=== PATIENT | female | born 1990 | race Two or more races ===

== ENCOUNTER → 2022-07-20 | Outpatient (CLI) | payer OTHER, MEDICAID ==
[2022-07-20 15:53] LABS: BASO % 0.1 % (0.0-1.0); EOS # 0.1 10^3/uL (0.0-0.5); EOS % 0.9 % (0.0-3.0); HEMATOCRIT 36.7 % (36.0-47.0); HEMOGLOBIN 11.4 g/dl (12.0-15.5); LYMPH # 2.8 10^3/uL (1.5-5.0); LYMPH % 25.8 % (24.0-44.0); MEAN CORPUSCULAR HEMOGLOBIN 22.2 pg (27.0-33.0); MEAN CORPUSCULAR HGB CONC 31.1 g/dl (32.0-36.5); MEAN CORPUSCULAR VOLUME 71.4 fl (80.0-96.0); MONO # 0.8 10^3/uL (0.0-0.8); MONO % 7.4 % (2.0-8.0); NEUTROPHILS # 7.2 10^3/uL (1.5-8.5); NEUTROPHILS % 65.4 % (36.0-66.0); PLATELET COUNT, AUTOMATED 359 10^3/uL (150-450); RED BLOOD COUNT 5.14 10^6/uL (4.00-5.40); WHITE BLOOD COUNT 10.9 10^3/uL (4.0-10.0)
[2022-07-20 17:11] LABS: TOTAL PROTEIN,RANDOM URINE 13.3 MG/DL (0.0-12.0)
[2022-07-20 17:37] LABS: GC DNA AMPLIFICATION NEGATIVE (NEGATIVE)
[2022-07-20 19:25] LABS: ALT/SGPT 15 U/L (12-78); BILIRUBIN,TOTAL 0.1 MG/DL (0.2-1.0); CREATININE FOR GFR 0.61 MG/DL (0.55-1.30); GLOMERULAR FILTRATION RATE > 60.0 (>60); HEPATITIS C VIRUS ABY INDEX < 0.0 INDEX (<0.8); HIV 1&2 SCREEN CENTAUR NEGATIVE (NEGATIVE); LDH LACTATE DEHYDROGENASE 204 U/L (84-246)
== END ==
LOC: M PLALAB 14:10
PROVIDERS: ATTEND Obstetrics & Gynecology
DX: O10.911 Unspecified pre-existing hypertension complicating pregnancy, first trimester (principal)

== ENCOUNTER → 2022-10-07 | Outpatient (CLI) | payer OTHER | LOC: M WHC 08:56 | PROVIDERS: ATTEND Specialist | DX: Z34.82 Encounter for supervision of other normal pregnancy, second trimester (principal) ==

== ENCOUNTER → 2022-11-27 | Outpatient (CLI) | payer OTHER ==
[2022-11-27 17:35] LABS: HEMATOCRIT 34.3 % (36.0-47.0); HEMOGLOBIN 10.4 g/dl (12.0-15.5); MEAN CORPUSCULAR HEMOGLOBIN 21.5 pg (27.0-33.0); MEAN CORPUSCULAR HGB CONC 30.3 g/dl (32.0-36.5); MEAN CORPUSCULAR VOLUME 70.9 fl (80.0-96.0); PLATELET COUNT, AUTOMATED 385 10^3/uL (150-450); RED BLOOD COUNT 4.84 10^6/uL (4.00-5.40); WHITE BLOOD COUNT 13.2 10^3/uL (4.0-10.0)
== END ==
LOC: M PLALAB 14:20
PROVIDERS: ATTEND Obstetrics & Gynecology
DX: O10.912 Unspecified pre-existing hypertension complicating pregnancy, second trimester (principal); Z3A.24 24 weeks gestation of pregnancy

== ENCOUNTER → 2023-01-13 | Outpatient (REF) | payer OTHER | LOC: M SFHCWAGY 16:41 | PROVIDERS: ATTEND Obstetrics & Gynecology | DX: Z34.93 Encounter for supervision of normal pregnancy, unspecified, third trimester (principal) ==

== ENCOUNTER → 2023-01-15 | Outpatient (CLI) | payer OTHER | LOC: M WHC 13:52 | PROVIDERS: ATTEND Obstetrics & Gynecology | DX: O10.013 Pre-existing essential hypertension complicating pregnancy, third trimester (principal) ==

== ENCOUNTER 2023-01-24 19:05 | Inpatient (IN) | payer OTHER ==
[~2023-01-24] VITALS: Ht 162.6 cm; Wt 110.4 kg
[2023-01-24] MEDS ORDERED: PENICILLIN G POTASSIUM 5 MU IV 5 MU in D5W MINI-BAG PLUS 100 ML IV STA (19:34)
[2023-01-24] MEDS ORDERED: LIDOCAINE 1% MDV 20ML VIAL INFIL PRN (19:35)
[2023-01-24] MEDS ORDERED: OXYTOCIN DRIP 30 UNITS in IV 1 EA IV PRN (19:35)
[2023-01-24] MEDS ORDERED: UNRESOLVED CLARIFICATION ENTRY XX STA (19:44)
[2023-01-24] MEDS ORDERED: ZOLO25TA PO (20:00)
[2023-01-24] MEDS ORDERED: FERR325T3 PO (20:01)
[2023-01-24] MEDS ORDERED: ASPI81CH33 PO (20:01)
[2023-01-24 20:05] LABS: HEMATOCRIT 36.6 % (36.0-47.0); HEMOGLOBIN 11.8 g/dl (12.0-15.5); MEAN CORPUSCULAR HEMOGLOBIN 22.1 pg (27.0-33.0); MEAN CORPUSCULAR HGB CONC 32.2 g/dl (32.0-36.5); MEAN CORPUSCULAR VOLUME 68.7 fl (80.0-96.0); PLATELET COUNT, AUTOMATED 304 10^3/uL (150-450); RED BLOOD COUNT 5.33 10^6/uL (4.00-5.40)
[2023-01-24] MEDS ORDERED: LR 1,000 ML IV SCH (20:15)
[2023-01-24] MEDS ORDERED: LR 1,000 ML IV ONE (20:15)
[2023-01-24] MEDS: miSOPROStol 50MCG 1/2 TABLET PO SCH (20:19)
[2023-01-24 20:20] VITALS: BP 137/73
[2023-01-24 20:27] LABS: LDH LACTATE DEHYDROGENASE 184 U/L (120-246)
[2023-01-24 20:29] LABS: ALT/SGPT 9 U/L (7.0-40); AST/SGOT < 8 U/L (<34); BILIRUBIN,TOTAL 0.2 MG/DL (0.3-1.2); CREATININE FOR GFR 0.55 MG/DL (0.55-1.30); GLOMERULAR FILTRATION RATE > 60.0 (>60)
[2023-01-24 20:51] VITALS: BP 127/73
[2023-01-24 21:21] VITALS: BP 120/62
[2023-01-24 23:45] VITALS: BP 134/82
[2023-01-25] VITALS (14 sets, daily range): BP systolic 130–185; BP diastolic 62–101
[2023-01-25] MEDS ORDERED: PEN G POT 3,000,000 UNIT/50 ML 3,000,000 UNIT in IV 1 EA IV SCH ×2
[2023-01-25] MEDS: miSOPROStol 50MCG 1/2 TABLET PO SCH (00:16)
[2023-01-25] MEDS ORDERED: ONDANSETRON 4MG 2ML VIAL IV PRN (01:40)
[2023-01-25] MEDS ORDERED: LR 500 ML IV PRN (01:40)
[2023-01-25] MEDS ORDERED: diphenhydrAMINE 50MG/ML VIAL IV PRN (01:40)
[2023-01-25] MEDS ORDERED: ePHEDrine SULFATE 25 MG/5 ML(5MG/ML) SYRINGE IVP PRN (01:40)
[2023-01-25] MEDS ORDERED: EPIDURAL/PCA KEYS XX PRN (01:40)
[2023-01-25] MEDS ORDERED: NALOXONE INJ 0.4MG/1ML VIAL IV PRN (01:40)
[2023-01-25] MEDS ORDERED: FENTANYL/ROPIVACAINE/NACL BAG 100 ML EPIDURAL SCH (01:40)
[2023-01-25] MEDS ORDERED: OXYTOCIN 30UNITS IN 0.9% NaCl 500ML IV BAG As Ordered ONE (02:37)
[2023-01-25] MEDS ORDERED: METHYLERGONOVINE MALEATE 0.2 MG TAB PO PRN (03:35)
[2023-01-25] MEDS ORDERED: IBUPROFEN 800 MG TAB PO PRN (03:35)
[2023-01-25] MEDS ORDERED: IBUPROFEN 600MG TAB PO PRN (03:35)
[2023-01-25] MEDS ORDERED: OXYTOCIN DRIP 30 UNITS in IV 1 EA IV SCH (03:35)
[2023-01-25] MEDS ORDERED: MOM 30ML SUSPENSION UDC PO PRN (03:35)
[2023-01-25] MEDS ORDERED: RHOGAM 300MCG (1500IU) INJ IM SCH (03:35)
[2023-01-25] MEDS ORDERED: DOCUSATE SODIUM 100MG CAPSULE PO PRN (03:35)
[2023-01-25] MEDS ORDERED: ACETAMINOPHEN TAB 650MG DOSE (2X325MG) PO PRN (03:35)
[2023-01-25] MEDS ORDERED: DIBUCAINE 1% OINTMENT 30GM TOP PRN (03:35)
[2023-01-25] MEDS: LABETALOL 200 MG TAB PO SCH ×2 (03:38→21:55)
[2023-01-25] MEDS: ACETAMINOPHEN 500 MG TAB PO PRN ×2 (03:52→06:36)
[2023-01-25] MEDS ORDERED: oxyCODONE 10 MG CR TAB PO PRN (05:05)
[2023-01-25] MEDS ORDERED: oxyCODONE 5MG TAB PO PRN (05:15)
[2023-01-25] MEDS: PRENATAL VITAMINS CHEWABLE TABLET PO SCH (11:03)
[2023-01-26 06:00] VITALS: BP 128/65
[2023-01-26] MEDS: LABETALOL 200 MG TAB PO SCH (08:14)
[2023-01-26] MEDS: PRENATAL VITAMINS CHEWABLE TABLET PO SCH (08:14)
[2023-01-26] MEDS ORDERED: IBUP80TA PO (09:19)
[2023-01-26] MEDS ORDERED: ACET-683 PO (09:19)
[2023-01-27] MEDS ORDERED: MEASLES,MUMPS,RUBELLA VACCINE INJ (MMR-II) SC.IMMUN ONE (09:00)
== END 2023-01-26 15:25 | disposition home or self-care (01) | DRG 807 ==
LOC: M LDI 19:05 → M OBS 01-25 04:40
PROVIDERS: ADMIT Obstetrics & Gynecology; ATTEND Obstetrics & Gynecology
PROC: 3E033VJ Introduction of Other Hormone into Peripheral Vein, Percutaneous Approach (ICD-10-PCS; 2023-01-24)
PROC: 10E0XZZ Delivery of Products of Conception, External Approach (ICD-10-PCS; principal; 2023-01-25)
PROC: 0KQM0ZZ Repair Perineum Muscle, Open Approach (ICD-10-PCS; 2023-01-25)
DX: O10.02 Pre-existing essential hypertension complicating childbirth (principal); Z37.0 Single live birth; Z3A.38 38 weeks gestation of pregnancy; Z79.82 Long term (current) use of aspirin; Z79.899 Other long term (current) drug therapy; O70.1 Second degree perineal laceration during delivery; O99.344 Other mental disorders complicating childbirth; F43.10 Post-traumatic stress disorder, unspecified; F60.89 Other specific personality disorders; Z62.811 Personal history of psychological abuse in childhood; Z62.810 Personal history of physical and sexual abuse in childhood

== ENCOUNTER → 2023-02-16 | Outpatient (REF) | payer OTHER ==
[~2023-02-16] MED LIST: ACET-683 PO; ASPI81CH33 PO; FERR325T3 PO; IBUP80TA PO; ZOLO25TA PO
== END ==
LOC: M LAB REF 16:17
PROVIDERS: ATTEND Physician Assistant
DX: E04.9 Nontoxic goiter, unspecified (principal)

== ENCOUNTER 2023-06-26 19:03 | Emergency (ER) | payer OTHER ==
[~2023-06-26] VITALS: Ht 162.6 cm; Wt 85.5 kg
[2023-06-26 20:15] VITALS: TEMP 97.8
[2023-06-26 22:01] LABS: HEMATOCRIT 38.9 % (36.0-47.0); HEMOGLOBIN 11.7 g/dl (12.0-15.5); MEAN CORPUSCULAR HGB CONC 30.1 g/dl (32.0-36.5); MEAN CORPUSCULAR VOLUME 66.6 fl (80.0-96.0); PLATELET COUNT, AUTOMATED 406 10^3/uL (150-450); RED BLOOD COUNT 5.84 10^6/uL (4.00-5.40); WHITE BLOOD COUNT 10.9 10^3/uL (4.0-10.0)
[2023-06-26] MEDS ORDERED: PALI1TAB3 PO (22:12)
[2023-06-26] MEDS ORDERED: ZOLO100T PO (22:12)
[2023-06-26] MEDS ORDERED: HYDR-3363 PO (22:12)
[2023-06-26] MEDS ORDERED: TRAZ-257 PO (22:12)
[2023-06-26] MEDS ORDERED: ONDA4TAB6 PO (22:12)
[2023-06-26] MEDS ORDERED: HOME MED LIST COMPLETE! XX SCH (22:15)
[2023-06-26 22:28] LABS: AMPHETAMINES LEVEL URINE NEGATIVE (NEGATIVE); BARBITURATES URINE NEGATIVE (NEGATIVE); CANNABINOIDS URINE NEGATIVE (NEGATIVE); COCAINE METABOLITE URINE NEGATIVE (NEGATIVE); METHADONE URINE NEGATIVE (NEGATIVE); OPIATES URINE NEGATIVE (NEGATIVE); PHENCYCLIDINE URINE NEGATIVE (NEGATIVE)
[2023-06-26 22:29] LABS: BENZODIAZEPINES URINE NEGATIVE (NEGATIVE)
[2023-06-26 22:30] LABS: ETHYL ALCOHOL (ETHANOL) < 0.003 % (0.000-0.010); HCG, SERUM QUALITATIVE NEGATIVE (NEGATIVE)
[2023-06-26 22:31] LABS: ACETAMINOPHEN LEVEL < 2.0 UG/ML (10.0-20.0); ALBUMIN 3.9 G/DL (3.2-5.2); ALKALINE PHOSPHATASE 61 U/L (46-116); ALT/SGPT 20 U/L (7.0-40); AST/SGOT 16 U/L (<34); BILIRUBIN,DIRECT 0.1 MG/DL (<0.4); BILIRUBIN,TOTAL 0.3 MG/DL (0.3-1.2); BLOOD UREA NITROGEN 11 MG/DL (9-23); CALCIUM LEVEL 9.6 MG/DL (8.5-10.1); CARBON DIOXIDE LEVEL 26 MMOL/L (20-31); CHLORIDE LEVEL 107 MMOL/L (98-107); CREATININE FOR GFR 0.72 MG/DL (0.55-1.30); GLOMERULAR FILTRATION RATE > 60.0 (>60); GLUCOSE, FASTING 84 MG/DL (60-100); POTASSIUM SERUM 4.2 MMOL/L (3.5-5.1); SALICYLATE LEVEL < 3.0 MG/DL (<30); SODIUM LEVEL 141 MMOL/L (136-145); TOTAL PROTEIN 7.4 G/DL (5.7-8.2)
[2023-06-26 22:34] LABS: THYROID STIMULATING HORMONE 1.287 uIU/ML (0.55-4.78)
[2023-06-26 23:53] VITALS: BP 171/98; O2SAT 98
== END 2023-06-26 23:55 | disposition home or self-care (01) ==
LOC: M ED 19:03
DX: R45.851 Suicidal ideations (principal); F43.9 Reaction to severe stress, unspecified; F41.9 Anxiety disorder, unspecified; F32.A Depression, unspecified; F31.9 Bipolar disorder, unspecified; Z79.899 Other long term (current) drug therapy

== ENCOUNTER 2023-10-06 22:11 | Emergency (ER) | payer OTHER ==
[~2023-10-06 22:11] MED LIST changes: +HYDR-3363 PO; +ONDA4TAB6 PO; +PALI1TAB3 PO; +TRAZ-257 PO; +ZOLO100T PO
[2023-10-06] MEDS ORDERED: DERMABOND TOPICAL SKIN ADHESIVE TOP ONE (23:00)
[2023-10-06] MEDS ORDERED: BOOSTRIX VACCINE (TETANUS/DIPHTH/ACEL. PERTUSSIS) 0.5ML SYR IM.IMMUN ONE (23:20)
[2023-10-07] MEDS ORDERED: ARIP10TA32 PO (00:14)
[2023-10-07] MEDS ORDERED: HOME MED LIST COMPLETE! XX SCH (00:15)
[2023-10-07] MEDS ORDERED: LORazepam 1 MG TAB PO STA (00:17)
[2023-10-07 00:41] LABS: AMPHETAMINES LEVEL URINE NEGATIVE (NEGATIVE); BARBITURATES URINE NEGATIVE (NEGATIVE); BENZODIAZEPINES URINE NEGATIVE (NEGATIVE); CANNABINOIDS URINE NEGATIVE (NEGATIVE); COCAINE METABOLITE URINE NEGATIVE (NEGATIVE); METHADONE URINE NEGATIVE (NEGATIVE); OPIATES URINE NEGATIVE (NEGATIVE); PHENCYCLIDINE URINE NEGATIVE (NEGATIVE)
[2023-10-07 00:42] LABS: HEMATOCRIT 38.8 % (36.0-47.0); HEMOGLOBIN 12.3 g/dl (12.0-15.5); MEAN CORPUSCULAR HEMOGLOBIN 21.8 pg (27.0-33.0); MEAN CORPUSCULAR HGB CONC 31.7 g/dl (32.0-36.5); MEAN CORPUSCULAR VOLUME 68.8 fl (80.0-96.0); PLATELET COUNT, AUTOMATED 395 10^3/uL (150-450); RED BLOOD COUNT 5.64 10^6/uL (4.00-5.40); WHITE BLOOD COUNT 13.2 10^3/uL (4.0-10.0)
[2023-10-07 00:43] LABS: ETHYL ALCOHOL (ETHANOL) < 0.003 % (0.000-0.010)
[2023-10-07 00:45] LABS: ALBUMIN 4.1 G/DL (3.2-5.2); ALKALINE PHOSPHATASE 61 U/L (46-116); ALT/SGPT 20 U/L (7.0-40); AST/SGOT 13 U/L (<34); BILIRUBIN,DIRECT < 0.1 MG/DL (<0.4); BILIRUBIN,TOTAL 0.3 MG/DL (0.3-1.2); BLOOD UREA NITROGEN 23 MG/DL (9-23); CALCIUM LEVEL 9.3 MG/DL (8.5-10.1); CARBON DIOXIDE LEVEL 23 MMOL/L (20-31); CHLORIDE LEVEL 104 MMOL/L (98-107); CREATININE FOR GFR 0.88 MG/DL (0.55-1.30); GLOMERULAR FILTRATION RATE > 60.0 (>60); GLUCOSE, FASTING 95 MG/DL (60-100); POTASSIUM SERUM 4.1 MMOL/L (3.5-5.1); SALICYLATE LEVEL < 3.0 MG/DL (<30); SODIUM LEVEL 137 MMOL/L (136-145); TOTAL PROTEIN 7.9 G/DL (5.7-8.2)
[2023-10-07 00:46] LABS: HCG, SERUM QUALITATIVE NEGATIVE (NEGATIVE)
[2023-10-07 00:47] LABS: THYROID STIMULATING HORMONE 0.631 uIU/ML (0.55-4.78)
[2023-10-07] MEDS ORDERED: traZODone 100 MG TAB PO PRN (08:05)
[2023-10-07] MEDS ORDERED: ONDANSETRON 4MG ORAL DISINTEGRATING TAB PO PRN (08:05)
[2023-10-07 08:49] VITALS: TEMP 97.8
[2023-10-07] MEDS ORDERED: SERTRALINE 100 MG TAB PO SCH (09:00)
[2023-10-07] MEDS ORDERED: ARIPiprazole 10 MG TAB PO SCH (09:00)
[2023-10-07] MEDS ORDERED: METAL LOCK LOOP XX ONE (11:49)
[2023-10-07 13:05] LABS: APPEARANCE, URINE HAZY (CLEAR); BACTERIA, URINE AUTO NEGATIVE (NEGATIVE); BILIRUBIN, URINE AUTO NEGATIVE (NEGATIVE); BLOOD, URINE BLOOD 3+ (NEGATIVE); COLOR, URINE YELLOW (YELLOW); GLUCOSE, URINE (UA) AUTO NEGATIVE (NEGATIVE); KETONE, URINE AUTO NEGATIVE (NEGATIVE); LEUKOCYTE ESTERASE, URINE AUTO TRACE (NEGATIVE); NITRITE, URINE AUTO NEGATIVE (NEGATIVE); PROTEIN, URINE AUTO 2+ mg/dL (NEGATIVE); RBC, URINE AUTO TNTC /HPF (0-3); SPECIFIC GRAVITY URINE AUTO 1.029 (1.002-1.035); SQUAMOUS EPITHELIAL CELL UR AU 5 /HPF (0-6); UROBILINOGEN, URINE AUTO 0.2 mg/dL (0.0-2.0); WBC, URINE AUTO 18 /HPF (0-3)
[2023-10-07 16:38] VITALS: BP 149/99; O2SAT 98
== END 2023-10-07 16:38 ==
LOC: M ED 22:11
DX: R45.851 Suicidal ideations (principal); S51.812A Laceration without foreign body of left forearm, initial encounter; F32.A Depression, unspecified; F31.9 Bipolar disorder, unspecified; F20.9 Schizophrenia, unspecified; Z79.899 Other long term (current) drug therapy

== ENCOUNTER 2024-07-05 10:44 | Emergency (ER) | payer OTHER ==
[~2024-07-05] VITALS: Ht 162.6 cm; Wt 92.9 kg
[~2024-07-05 10:44] MED LIST changes: +ARIP10TA32 PO; +ONDA-282 PO; -ONDA4TAB6 PO
[2024-07-05 10:46] VITALS: BP 141/87; TEMP 97.4; O2SAT 100
[2024-07-05] MEDS ORDERED: LAMO25TA4 (10:52)
[2024-07-05] MEDS ORDERED: LAMO25TA4 PO (12:00)
[2024-07-05] MEDS ORDERED: ARIP1TAB PO (12:00)
== END 2024-07-05 12:05 | disposition home or self-care (01) ==
LOC: M ED 10:44
DX: Z76.0 Encounter for issue of repeat prescription (principal); Z79.899 Other long term (current) drug therapy

== ENCOUNTER → 2024-08-31 | Outpatient (CLI) | payer OTHER ==
[~2024-08-31] MED LIST changes: -ARIP10TA32 PO; +ARIP10TA63 PO; +ARIP1TAB PO; +LAMO25TA4; +LAMO25TA4 PO
[2024-08-31 11:33] LABS: BASO % 0.3 % (0.0-1.0); EOS % 0.1 % (0.0-3.0); HEMATOCRIT 40.4 % (36.0-47.0); HEMOGLOBIN 12.1 g/dl (12.0-15.5); LYMPH # 2.5 10^3/uL (1.5-5.0); MEAN CORPUSCULAR HEMOGLOBIN 19.7 pg (27.0-33.0); MEAN CORPUSCULAR VOLUME 65.9 fl (80.0-96.0); MONO # 0.5 10^3/uL (0.0-0.8); MONO % 5.7 % (2.0-8.0); NEUTROPHILS # 6.1 10^3/uL (1.5-8.5); NEUTROPHILS % 66.4 % (36.0-66.0); PLATELET COUNT, AUTOMATED 364 10^3/uL (150-450); RED BLOOD COUNT 6.13 10^6/uL (4.00-5.40); WHITE BLOOD COUNT 9.1 10^3/uL (4.0-10.0)
[2024-08-31 11:49] LABS: HEMOGLOBIN A1c 5.3 % (4.0-6.0)
[2024-08-31 12:05] LABS: ALBUMIN 3.9 G/DL (3.2-5.2); ALKALINE PHOSPHATASE 61 U/L (35-104); ALT/SGPT 14 U/L (7.0-40); AST/SGOT 9 U/L (<34); BILIRUBIN,TOTAL 0.3 MG/DL (0.3-1.2); BLOOD UREA NITROGEN 18 MG/DL (9-23); CALCIUM LEVEL 9.9 MG/DL (8.5-10.1); CARBON DIOXIDE LEVEL 28 MMOL/L (20-31); CHLORIDE LEVEL 106 MMOL/L (98-107); CHOLESTEROL LEVEL 122 MG/DL (<200); CHOLESTEROL RISK RATIO 2.37 (<5); CREATININE FOR GFR 0.68 MG/DL (0.55-1.30); GLOMERULAR FILTRATION RATE > 60.0 (>60); GLUCOSE, FASTING 85 MG/DL (60-100); HDL CHOLESTEROL 51.3 MG/DL (>40); LDL CHOLESTEROL 62.5 MG/DL (<100); NON-HDL-C 70.7 MG/DL; POTASSIUM SERUM 4.2 MMOL/L (3.5-5.1); SODIUM LEVEL 138 MMOL/L (136-145); TOTAL PROTEIN 7.7 G/DL (5.7-8.2); TRIGLYCERIDES LEVEL 41 MG/DL (<150)
[2024-08-31 12:06] LABS: TOTAL 25(OH) VITAMIN D 16.8 NG/ML (20.0-100.0)
[2024-08-31 12:07] LABS: THYROID STIMULATING HORMONE 0.903 uIU/ML (0.55-4.78)
== END ==
LOC: M LAB 10:24
PROVIDERS: ATTEND Registered Nurse Psychiatric/Mental Health
DX: Z71.89 Other specified counseling (principal)